=== PATIENT | male | born 1985 | race Asian ===

== ENCOUNTER 2018-10-29 09:26 | Emergency (ER) | payer MEDICAID ==
[2018-10-29] MEDS ORDERED: Albuterol/Ipratropium Neb 3 ML AERS HHN ONE ×2 (10:10→10:14)
[2018-10-29] MEDS ORDERED: Dexamethasone Sodium Phos 4 mg/mL Vial INH STA (10:11)
[2018-10-29] MEDS ORDERED: Dexamethasone Sodium Phos 4 mg/mL Vial ONE (10:17)
--- NOTE | 2018-10-29 10:20 | ED Physician Chart ---
ED Chief Complaint/HPI - Patient Information Date Seen:: 10/29/18 Time Seen:: 10:13 Chief Complaint:: cough History of Present Illness:: 33 yr old male with cough for 3 days child sick a;so and hx of asthma no sob no cp no nvd or abd pain Allergies:: Allergies Allergy/AdvReac Type Severity Reaction Status Date / Time No Known Allergies Allergy Verified 10/29/18 10:00 Vitals:: Vital Signs - 8 hr 10/29/18 09:44 Temp 98.5 F HR 84 RR 18 BP 125/68 O2 Sat % 94 ED Review of Systems - Review of Systems General/Constitutional: No fever Skin: No skin lesions Head: No headache Eyes: No loss of vision ENT: No earache Neck: No neck pain Cardio Vascular: No chest pain Pulmonary: Cough, Wheezing GI: No vomiting, No diarrhea G/U: No dysuria Musculoskeletal: No bone or joint pain Endocrine: No polyuria Hematopoietic: No bruising Allergic/Immuno: No urticaria Neurological: No syncope ED Past Medical History - Past Medical History Past Medical History: Asthma/COPD Family Medical History - Family Member Mother Ethnicity: Non- Living Status: Hx Family Hypertension: Yes ED Physical Exam - Physical Examination General/Constitutional: Awake Head: Atraumatic Skin: Nl inspection ENMT: External ears, nose nl Neck: Nontender Other Respiratory comments:: wheezing rhonchi Cardio Vascular: RRR GI: No tenderness/rebounding/guarding : No CVA tenderness Extremities: No tenderness or effusion Neuro/Psych: Alert/oriented ED Septic Shock - . Is Septic Shock (SBP<90, OR Lactate>4 mmol\L) present?: No - <6hrs of presentation: Vital Signs: Vital Signs - 8 hr 10/29/18 09:44 Temp 98.5 F HR 84 RR 18 BP 125/68 O2 Sat % 94 ED Reassessment (Disposition) - Reassessment Reassessment:: bronchitis asthma exacerbation - Diagnosis Diagnosis:: cough bronchitis - Aftercare/Follow up Instructions Aftercare/Follow-Up Instructions:: Counseled pt regarding lab results/diagnosis & need follow up Medication Prescribed:: zpack phenergan dm medrol dose pack - Patient Disposition Discharge/Transfer:: Home Condition at Disposition:: Stable
== END 2018-10-29 11:10 | disposition home or self-care (01) ==
LOC: ER 09:26
DX: J45.901 Unspecified asthma with (acute) exacerbation (principal)
CPT/HCPCS: 99283; 96372; 94640; J7510; J0696; J1100; Z7502